=== PATIENT | female | born 1990 | race Caucasian/White ===

== ENCOUNTER 2017-12-14 12:14 | Emergency (ER) | payer OTHER ==
[2017-12-14] MEDS ORDERED: DIPHENHYDRAMINE HCL 50 MG/ML VIAL IV ONE ×2 (12:27→16:18)
[2017-12-14] MEDS ORDERED: METOCLOPRAMIDE HCL INJ/PF 10 MG/2 ML SDV IV ONE (12:27)
--- NOTE | 2017-12-14 12:30 | ER Document Report ---
ED Medical Screen (RME) - General Chief Complaint: Breathing Difficulty Stated Complaint: DIFFICULTY BREATHING Time Seen by Provider: 12/14/17 12:24 Notes: Patient is a 27-year-old female, past medical history asthma, 30 weeks , presents with increasing shortness of breath since this morning and shivering. She saw her heart rate monitor while at work was reading a heart rate in 130's. She denies leg pain or swelling, hemoptysis, syncope, chest pain , abdominal pain, leakage of fluids or vaginal bleeding. PE: Lungs CTAB. Tachycardia, regular rhythm. Abdomen gravid and non-tender. I have greeted and performed a rapid initial assessment of this patient. A comprehensive ED assessment and evaluation of the patient, analysis of test results and completion of the medical decision making process will be conducted by additional ED providers. TRAVEL OUTSIDE OF THE [place] IN LAST 30 DAYS: No Physical Exam - Vital signs Vitals: Temp Pulse Resp BP Pulse Ox 98.5 F 137 H 20 138/73 H 98 12/14/17 12:18 12/14/17 12:18 12/14/17 12:18 12/14/17 12:18 12/14/17 12:18 Course - Vital Signs Vital signs: Temp Pulse Resp BP Pulse Ox 98.5 F 137 H 20 138/73 H 98 12/14/17 12:18 12/14/17 12:18 12/14/17 12:18 12/14/17 12:18 12/14/17 12:18
[2017-12-14] MEDS: NORMAL SALINE 1000 ML 1,000 ML IV PRN ×2 (13:05→13:30)
[2017-12-14 13:12] LABS: ABSOLUTE LYMPHOCYTES (AUTO) 2.3 10^3/uL (0.5-4.7); ABSOLUTE MONOCYTES (AUTO) 0.8 10^3/uL (0.1-1.4); ABSOLUTE NEUT (AUTO) 10.3 10^3/uL (1.7-8.2); BASOPHILS % (AUTO) 0.3 % (0-2); EOSINOPHILS % (AUTO) 0.2 % (0-6); HEMATOCRIT 32.8 % (36.0-47.0); HEMOGLOBIN 11.2 g/dL (12.0-15.5); LYMPHOCYTES % (AUTO) 17.2 % (13-45); MEAN CORPUSCULAR HEMOGLOBIN 29.9 pg (27.0-33.4); MEAN CORPUSCULAR HGB CONC 34.1 g/dL (32.0-36.0); MEAN CORPUSCULAR VOLUME 88 fl (80-97); MONOCYTES % (AUTO) 5.7 % (3-13); PLATELET COUNT 323 10^3/uL (150-450); RED BLOOD COUNT 3.75 10^6/uL (3.72-5.28); RED CELL DISTRIBUTION WIDTH 13.5 % (11.5-14.0); SEGMENTED NEUTROPHILS % (AUTO) 76.6 % (42-78); TOTAL CELLS COUNTED % (AUTO) 100 %; WHITE BLOOD COUNT 13.4 10^3/uL (4.0-10.5)
[2017-12-14 13:31] LABS: ALANINE AMINOTRANSFERASE 20 U/L (9-52); ALBUMIN 3.9 g/dL (3.5-5.0); ALKALINE PHOSPHATASE 127 U/L (38-126); ANION GAP 13 (5-19); ASPARTATE AMINO TRANSFERASE 26 U/L (14-36); BILIRUBIN,DIRECT 0.3 mg/dL (0.0-0.4); BILIRUBIN,TOTAL 0.3 mg/dL (0.2-1.3); BLOOD UREA NITROGEN 7 mg/dL (7-20); CALCIUM 8.7 mg/dL (8.4-10.2); CARBON DIOXIDE 22 mmol/L (22-30); CHLORIDE 104 mmol/L (98-107); GLUCOSE 77 mg/dL (75-110); POTASSIUM 4.1 mmol/L (3.6-5.0); SODIUM 138.7 mmol/L (137-145); TOTAL PROTEIN 7.4 g/dL (6.3-8.2)
[2017-12-14 13:59] LABS: FREE T3 2.88 pg/mL (2.77-5.27)
--- NOTE | 2017-12-14 14:10 | ER Document Report ---
ED General - General Mode of Arrival: Ambulatory Information source: Patient TRAVEL OUTSIDE OF THE [place] IN LAST 30 DAYS: No <RADAMES HOOKS - Last Filed: 12/14/17 14:50> <LYNSEY AGUIRRE - Last Filed: 12/14/17 18:05> - General Chief Complaint: Breathing Difficulty Stated Complaint: DIFFICULTY BREATHING Time Seen by Provider: 12/14/17 12:24 Notes: Patient is a 27 year old female with asthma and currently 30 weeks presents to the emergency department complaining of her heart racing with associated symptoms including dizziness, nausea, shortness of breath, abdominal cramping and hot flashes onset this morning. Patient states she read her heart rate monitor while at work this morning and found it to be in the 130s. Patient states a similar episode happened 3 days ago where her heart rate was in the 150s and she presented to [facility] where she was given fluids, a breathing treatment and unknown blood work performed, an ekg and venous doppler of her legs were performed. Patient states her ultrasound and ekg were normal. Patient denies any vaginal cramping, chest pain or syncope. Patient states that she currently takes her daily inhaler (Pulmicort) and vitamins. Patient is allergic to Betadine. Patient's primary care establishment is [facility]. (RADAMES HOOKS) - Related Data Allergies/Adverse Reactions: amoxicillin Allergy (Verified 12/14/17 13:08) fluticasone [From Advair Diskus] Allergy (Verified 12/14/17 13:08) Penicillins Allergy (Verified 12/14/17 13:08) povidone-iodine [From Betadine] Allergy (Verified 12/14/17 13:08) salmeterol [From Advair Diskus] Allergy (Verified 12/14/17 13:08) soap [From Betadine] Allergy (Verified 12/14/17 13:08) Past Medical History - General Information source: Patient - Social History Smoking Status: Never Smoker Chew tobacco use (# tins/day): No Frequency of alcohol use: None Drug Abuse: None Family History: Reviewed & Not Pertinent Patient has suicidal ideation: No Patient has homicidal ideation: No Pulmonary Medical History: Reports: Hx Asthma <RADAMES HOOKS - Last Filed: 12/14/17 14:50> Review of Systems - Review of Systems Constitutional: See HPI EENT: No symptoms reported Cardiovascular: See HPI, Heart racing, Dizziness Respiratory: See HPI, Short of breath Gastrointestinal: See HPI, Nausea Genitourinary: No symptoms reported Female Genitourinary: No symptoms reported Musculoskeletal: No symptoms reported Skin: No symptoms reported Hematologic/Lymphatic: No symptoms reported Neurological/Psychological: No symptoms reported. denies: Lost consciousness -: Yes All other systems reviewed and negative <RADAMES HOOKS - Last Filed: 12/14/17 14:50> Physical Exam <RADAMES HOOKS - Last Filed: 12/14/17 14:50> <LYNSEY AGUIRRE - Last Filed: 12/14/17 18:05> - Vital signs Vitals: Temp Pulse Resp BP Pulse Ox 98.5 F 137 H 20 138/73 H 98 12/14/17 12:18 12/14/17 12:18 12/14/17 12:18 12/14/17 12:18 12/14/17 12:18 - Notes Notes: GENERAL: Alert, interacts well. No acute distress. HEAD: Normocephalic, atraumatic. EYES: Pupils equal, round, and reactive to light. Extraocular movements intact. ENT: Oral mucosa moist, tongue midline. NECK: Full range of motion. Supple. Trachea midline. LUNGS: Clear to auscultation bilaterally, no wheezes, rales, or rhonchi. No respiratory distress. HEART: Regular rate and rhythm. No murmurs, gallops, or rubs. ABDOMEN: Soft, Left lateral abdomen tender in the round ligaments.. Gravid. Bowel sounds present in all 4 quadrants. EXTREMITIES: Moves all 4 extremities spontaneously. No edema in the BUE OR BLE. NEUROLOGICAL: Alert and oriented x3. Normal speech. PSYCH: Normal affect, normal mood. SKIN: Warm, dry, normal turgor. No rashes or lesions noted. (NEVARADAMES LÓPEZ) Course - Laboratory Result Diagrams: 12/14/17 12:59 12/14/17 12:59 <RADAMES HOOKS - Last Filed: 12/14/17 14:50> - Laboratory Result Diagrams: 12/14/17 12:59 12/14/17 12:59 - Diagnostic Test Radiology reviewed: Reports reviewed - CTA did not show pulmonary emboli in the large branches, suboptimal contrast load. <LYNSEY AGUIRRE - Last Filed: 12/14/17 18:05> - Re-evaluation Re-evalutation: 12/14/17 18:03 Patient was given copies of her lab work and the CT radiology report. She is comfortable at this time, heart rate about 100. She did not have any reaction to the Solu-Medrol so she now knows that she can take that if it is offered during an asthma attack. (LYNSEY AGUIRRE) - Vital Signs Vital signs: Temp Pulse Resp BP Pulse Ox 98.5 F 137 H 22 H 138/73 H 100 12/14/17 12:18 12/14/17 12:18 12/14/17 15:00 12/14/17 12:18 12/14/17 15:00 - Laboratory Laboratory results interpreted by me: 12/14/17 12/14/17 12/14/17 12:59 12:59 12:59 WBC 13.4 H Hgb 11.2 L Hct 32.8 L Absolute Neutrophils 10.3 H D-Dimer 1.07 H Alkaline Phosphatase 127 H Discharge <RADAMES HOOKS - Last Filed: 12/14/17 14:50> <LYNSEY AGUIRRE - Last Filed: 12/14/17 18:05> - Discharge Clinical Impression: Dyspnea Qualifiers: Dyspnea type: unspecified Qualified Code(s): R06.00 - Dyspnea, unspecified Condition: Stable Disposition: HOME, SELF-CARE Additional Instructions: Dyspnea, Nonspecific You were evaluated for shortness of breath, or dyspnea. Dyspnea has many causes, and some are more serious than others. Sometimes it's impossible to diagnose the cause of dyspnea with the tests that are available on an emergency basis. Based on our evaluation today, you do not need hospitalization now. We found no evidence of pneumonia, collapsed lung, blood clots in the lung, tumors , or heart failure. Causes of non-specific dyspnea can include asthma or bronchospasm, hyperventilation, emotional distress, heart disease, emphysema, fibrosis of the lung, and stiffness of the chest wall. In healthy individuals with a single episode, it's sometimes reasonable to do nothing but wait to see if the problem occurs again. Additional tests used to evaluate dyspnea can include cardiac stress testing, echocardiography, pulmonary function testing, CAT scan of the chest, bronchoscopy or pulmonary biopsy. Return if shortness of breath persists or worsens, or if you develop chest pain, fever, cough, confusion, or fainting. Drink plenty of fluids today. Follow-up with your [facility]EARCH [facility]INEER doctor tomorrow for recheck. Take copies of the lab work and radiology report. RETURN TO THE EMERGENCY ROOM IF ANY NEW OR WORSENING SYMPTOMS. Referrals: KARTHIK PAZ, [facility] [Primary Care Provider] - Follow up as needed Scribe Attestation: 12/14/17 15:18 I personally performed the services described in the documentation, reviewed and edited the documentation which was dictated to the scribe in my presence, and it accurately records my words and actions. (LYNSEY AGUIRRE) Scribe Documentation - Scribe Written by Adam:: Adam Buckley, 12/14/2017 14:17 acting as scribe for :: Rita <RADAMES HOOKS - Last Filed: 12/14/17 14:50>
[2017-12-14 14:13] LABS: THYROID STIMULATING HORMONE 1.47 uIU/mL (0.47-4.68)
[2017-12-14 14:14] LABS: FREE T4 (FREE THYROXINE) 0.94 ng/dL (0.78-2.19)
[2017-12-14] MEDS ORDERED: FAMOTIDINE INJ/PF 20 MG/2 ML SDV IV ONE ×2 (14:17→16:18)
[2017-12-14] MEDS ORDERED: METHYLPREDNISOLONE INJ 125 MG/2 ML SDV IV ONE (14:18)
--- NOTE | 2017-12-14 17:03 | RADIOLOGY REPORT (SQ) ---
EXAM DESCRIPTION: CTA CHEST COMPLETED DATE/TIME: 12/14/2017 4:52 pm REASON FOR STUDY: 31 wks, SOB, tachycardia, near syncope COMPARISON: None. TECHNIQUE: CT scan of the chest performed using helical scanning technique with dynamic intravenous contrast injection. Images reviewed with lung, soft tissue and bone windows. Reconstructed coronal and sagittal MPR images reviewed. Additional 3 dimensional post-processing performed to develop Maximal Intensity Projection images (FL P). All images stored on PACS. All CT scanners at this facility use dose modulation, iterative reconstruction, and/or weight based d osing when appropriate to reduce radiation dose to as low as reasonably achievable (ALARA). [facility]: Dose Right [facility]: CareDose [facility]: Dose Right [facility]: Teradose 4D [facility]: Mobilepolice CONTRAST TYPE AND DOSE: contrast/concentration: Isovue 370.00 mg/ml; Total Contrast Delivered: 71.0 ml; Total Saline Delivered: 90.0 ml Contrast bolus not optimized for the pulmonary arteries. RENAL FUNCTION: None required. The patient is less than 50 years old. RADIATION DOSE: CT Rad equipment meets quality standard of care and radiation dose reduction techniq ues were employed. CTDIvol: 16.5 - 17.4 mGy. DLP: 626 mGy-cm. . LIMITATIONS: None. FINDINGS: LUNGS AND PLEURA: No masses, infiltrates, or pneumothorax. No pleural effusions or pleura l calcifications. AORTA AND GREAT VESSELS: No aneurysm. Contrast bolus not optimized for the aorta. HEART: No pericardial effusion. No significant coronary artery calcifications. PULMONARY ARTERIES: Poor contrast bolus. No obvious large proximal pulmonary emboli. HILAR AND MEDIASTINAL STRUCTURES: No identified masses or abnormal nodes. HARDWARE: None in the chest. UPPER ABDOMEN: No significant findings. Limited exam. THYROID AND OTHER SOFT TISSUES: No masses. No adenopathy. BONES: No acute or significant finding. 3D MIPS: Confirm above findings. OTHER: No other significant finding. IMPRESSION: Poor contrast bolus. No obvious pulmonary emboli. COMMENT: Quality ID # [id number]: Final reports with documentation of one or more dose reduction techniques (e.g., Automated exposure control, adjustment of the mA and/or kV according to patient size, use of iterative reconstruction technique) TECHNICAL DOCUMENTATION: JOB ID: [id number] [employer]- All Rights Reserved Reading location - IP/workstation name: [email or web address]
[2017-12-14 18:06] VITALS: BP 108/80
--- NOTE | 2017-12-14 20:48 | EKG REPORT ---
SEVERITY:- BORDERLINE ECG - SINUS RHYTHM PROBABLE LEFT ATRIAL ABNORMALITY : Confirmed by: Gayla Kirk MD 14-Dec-2017 20:47:53
== END 2017-12-14 18:12 | disposition home or self-care (01) ==
LOC: EDSEX → ER 12:14
DX: O99.513 Diseases of the respiratory system complicating pregnancy, third trimester (principal); J45.909 Unspecified asthma, uncomplicated; Z79.51 Long term (current) use of inhaled steroids; O26.893 Other specified pregnancy related conditions, third trimester; R42 Dizziness and giddiness; R11.0 Nausea; R09.89 Other specified symptoms and signs involving the circulatory and respiratory systems; R10.9 Unspecified abdominal pain; R06.02 Shortness of breath; Z3A.30 30 weeks gestation of pregnancy; Z79.899 Other long term (current) drug therapy; Z88.3 Allergy status to other anti-infective agents; Z88.0 Allergy status to penicillin; Z88.8 Allergy status to other drugs, medicaments and biological substances
CPT/HCPCS: 93005; 99285; 96361; 96374; 96375; 36415; 84439; 84443; 85025; 80053; 84481; 85379; 71275; 93010; J1200; J2930; J2765; J7030; S0028